=== PATIENT | female | born 1980 | race Caucasian/White ===

== ENCOUNTER 2016-06-10 16:11 | Inpatient (IN) | payer BC ==
[~2016-06-10] VITALS: Ht 167.6 cm; Wt 87.6 kg
[2016-07-28] VITALS (44 sets, daily range): BP systolic 120–172; BP diastolic 64–100; PULSE 77–139; TEMP 97.4–98.2
[2016-07-28] MEDS ORDERED: PRENATAL MVI (07:32)
[2016-07-28 07:57] LABS: BASO # 0.1 (0.0-0.2); BASO % 0.5 % (0.0-2.0); EOS # 0.2 (0.0-0.7); EOS % 1.2 % (0-4.0); GRAN # 8.3 (1.4-6.5); LYMPH # 2.5 (1.2-3.4); LYMPH % 20.5 % (20.0-51.0); MEAN CELL VOLUME 84 fl (80.0-100.0); MEAN CORPUSCULAR HGB CONC 34 g/dl (33.0-37.0); MEAN PLATELET VOLUME 13.3 fl (7.4-10.4); MONO % 8.4 % (1.7-9.3); PLATELET COUNT 217 K/mm3 (130-400); RED BLOOD COUNT 3.75 M/mm3 (4.10-5.30); REDCELL DISTRIBUTION WIDTH-CV 13.1 % (11.5-14.5)
[2016-07-28 07:59] LABS: HEMATOCRIT 31.5 % (37.0-47.0); HEMOGLOBIN 10.8 g/dl (12.5-16.0); MEAN CORPUSCULAR HEMOGLOBIN 29 pg (27.0-31.0)
[2016-07-29] VITALS: BP 128/79; PULSE 79; TEMP 98
[2016-07-29 03:45] VITALS: BP 132/81; PULSE 87; TEMP 97.8
[2016-07-29 10:45] VITALS: BP 138/78; PULSE 82; TEMP 98.3
[2016-07-29] MEDS ORDERED: IBU800 M1 PO (16:59)
[2016-07-29] MEDS ORDERED: PERCOCET 325 MG1 TA2 PO (16:59)
== END 2016-07-29 18:30 | disposition home or self-care (01) | DRG 775 ==
LOC: EDSTATUS 07-19 09:00 → LDRO 07-19 16:09 → LDR 07-28 06:59 → OB 07-28 18:30
PROVIDERS: Student in an Organized Health Care Education/Training Program
PROC: 10E0XZZ Delivery of Products of Conception, External Approach (ICD-10-PCS; principal; 2016-07-28)
PROC: 0KQM0ZZ Repair Perineum Muscle, Open Approach (ICD-10-PCS; 2016-07-28)
PROC: 3E033VJ Introduction of Other Hormone into Peripheral Vein, Percutaneous Approach (ICD-10-PCS; 2016-07-28)
DX: O48.0 Post-term pregnancy (principal); O70.1 Second degree perineal laceration during delivery; Z3A.40 40 weeks gestation of pregnancy; Z37.0 Single live birth
CPT/HCPCS: J2405; J2590; J2795; J7120

== ENCOUNTER → 2018-09-29 | Outpatient (CLI) | payer BC ==
[~2018-09-29] MED LIST: IBU800 M1 PO; PERCOCET 325 MG1 TA2 PO; PRENATAL MVI
== END ==
LOC: MC.RAD 08:23
DX: N63.10 Unspecified lump in the right breast, unspecified quadrant (principal)
CPT/HCPCS: G0279

== ENCOUNTER → 2020-03-13 | Outpatient (CLI) | payer BC ==
[~2020-03-13] MED LIST changes: +MOTRIN 800800 MG/TAB PO; +NATURAL IRON65 MG
== END | disposition still patient (30) ==
LOC: ZCOL.LAB 03:58
DX: Z20.828 Contact with and (suspected) exposure to other viral communicable diseases (principal)

== ENCOUNTER 2020-03-16 01:08 | Inpatient (IN) | payer BC ==
[2020-03-16] VITALS (19 sets, daily range): BP systolic 108–172; BP diastolic 59–97; PULSE 73–150; TEMP 97.5–98.9
[~2020-03-16] VITALS: Ht 167.6 cm; Wt 87.3 kg
[~2020-03-16 01:08] MED LIST changes: -MOTRIN 800800 MG/TAB PO; -NATURAL IRON65 MG
--- NOTE | 2020-03-16 01:15 | NUR ---
Pt arrives on unit ambulatory with spouse. States ctx since last night that have increased in frequency and pain starting at 0000. Denies LOF, vaginal bleeding, and reports GFM. EFM and toco applied. MARIBEL. ODALYSE per this RN . Dr. Ashby notified. Orders for admission.
--- NOTE | 2020-03-16 01:57 | NUR ---
0157- SILVIANO HERRERA at the bedside for epidural placement. Pt sitting up on the edge of the bed. SPO2 monitor in place. EFM intermittently tracing maternal HR as coorelates with SPO2 monitor. 0202- Single shot done per SILVIANO Herrera. See anesthesia records for details. 0207- Repositioned pt back to supine position with left wedge. EFM and toco monitors adjusted.
[2020-03-16 02:01] LABS: BASO # 0.1 (0.0-0.2); BASO % 0.6 % (0.0-2.0); EOS # 0.1 (0.0-0.7); GRAN # 10.3 (1.4-6.5); HEMOGLOBIN 12.6 g/dl (12.5-16.0); LYMPH # 2.6 (1.2-3.4); LYMPH % 18.3 % (20.0-51.0); MEAN CELL VOLUME 88 fl (80.0-100.0); MEAN CORPUSCULAR HEMOGLOBIN 31 pg (27.0-31.0); MEAN CORPUSCULAR HGB CONC 35 g/dl (33.0-37.0); MONO # 1.1 (0.1-0.6); MONO % 7.5 % (1.7-9.3); PLATELET COUNT 211 K/mm3 (130-400); RED BLOOD COUNT 4.09 M/mm3 (4.10-5.30); REDCELL DISTRIBUTION WIDTH-CV 12.8 % (11.5-14.5)
[2020-03-16 02:05] LABS: HEMATOCRIT 36.1 % (37.0-47.0)
--- NOTE | 2020-03-16 02:37 | NUR ---
Dr. Ashby at the bedside. FHR tracing reviewed. SVE /-1 and AROM at 0237.
[2020-03-16] MEDS ORDERED: NATURAL IRON65 MG (02:59)
--- NOTE | 2020-03-16 03:03 | NUR ---
0303- SVE by this RN . Pushing instructions reviewed with pt and at the bedside. 0310- Pushing started. Roles on the unit. FHR tracing reviewed. 0359- Roles at the bedside for evaluation with pushing. 0404- Roles at the bedside. Pt set up for delivery. 0413- of viable male . Premium placed on the abdomen. Cords clamped and cut. Care of the given to nursery RN at the bedside. 0417- of placenta. Pitocin started at 333ml/hr per order and protocol. Fundus firm and lochia WNL.
[2020-03-16] MEDS ORDERED: MOTRIN 800800 MG/TAB PO (11:10)
[2020-03-17 08:41] VITALS: BP 122/78; PULSE 76; TEMP 97.8
--- NOTE | 2020-03-17 10:27 | NUR ---
Initial visit; Parents thanked [employer]er for offering congratulations and God's blessings for the of their son. Heavy [employer]er thanked family for choosing [facility].
== END 2020-03-17 12:02 | disposition home or self-care (01) | DRG 807 ==
LOC: LDRO 01:08 → LDR 01:28 → LDRO 04:00 → OB 07:00
PROVIDERS: Obstetrics & Gynecology; ADMIT Student in an Organized Health Care Education/Training Program
PROC: 10E0XZZ Delivery of Products of Conception, External Approach (ICD-10-PCS; principal; 2020-03-16)
PROC: 0KQM0ZZ Repair Perineum Muscle, Open Approach (ICD-10-PCS; 2020-03-16)
PROC: 10907ZC Drainage of Amniotic Fluid, Therapeutic from Products of Conception, Via Natural or Artificial Opening (ICD-10-PCS; 2020-03-16)
PROC: 0UQMXZZ Repair Vulva, External Approach (ICD-10-PCS; 2020-03-16)
DX: O48.0 Post-term pregnancy (principal); Z37.0 Single live birth; O77.0 Labor and delivery complicated by meconium in amniotic fluid; O70.1 Second degree perineal laceration during delivery; O71.82 Other specified trauma to perineum and vulva; Z3A.40 40 weeks gestation of pregnancy
CPT/HCPCS: J2590; J2795; J7120

== ENCOUNTER → 2023-11-03 | Outpatient (CLI) | payer BC ==
[~2023-11-03] MED LIST changes: +MOTRIN 800800 MG/TAB PO; +NATURAL IRON65 MG
== END ==
LOC: MC.RAD 06:53
DX: Z12.31 Encounter for screening mammogram for malignant neoplasm of breast (principal)